=== PATIENT | female | born 1990 | race African-American/Black ===

== ENCOUNTER 2018-02-10 09:46 | Emergency (ER) | payer OTHER ==
[~2018-02-10] VITALS: Ht 157.5 cm; Wt 61.2 kg
[2018-02-10 09:57] VITALS: BP 116/73
--- NOTE | 2018-02-10 10:24 | PHYS DOC ---
Past Medical History Past Medical History: No Pertinent History Past Surgical History: Alcohol Use: Rarely Drug Use: Marijuana Adult General Chief Complaint Chief Complaint: ELBOW PROBLEM HPI HPI Patient is a 27 year old female who presents with a swollen area to her left elbow for several months. The patient denies pain or drainage from the area. She is worried that it might be an abscess. She states that nothing has made it better or worse. Review of Systems Review of Systems Constitutional: Denies fever or chills [] Eyes: Denies change in visual acuity, redness, or eye pain [] HENT: Denies nasal congestion or sore throat [] Respiratory: Denies cough or shortness of breath [] Cardiovascular: No additional information not addressed in HPI [] GI: Denies abdominal pain, nausea, vomiting, bloody stools or diarrhea [] : Denies dysuria or hematuria [] Musculoskeletal: See history of present illness Integument: Denies rash or skin lesions [] Neurologic: Denies headache, focal weakness or sensory changes [] Endocrine: Denies polyuria or polydipsia [] All other systems were reviewed and found to be within normal limits, except as documented in this note. Allergies Allergies Allergies Coded Allergies Type Severity Reaction Last Updated Verified No Known Drug Allergies 05/01/13 No Physical Exam Physical Exam Constitutional: Well developed, well nourished, no acute distress, non-toxic appearance. [] Cardiovascular:Heart rate regular rhythm, no murmur [] Lungs & Thorax: Bilateral breath sounds clear to auscultation [] Abdomen: Bowel sounds normal, soft, no tenderness, no masses, no pulsatile masses. [] Skin: There is a 1 cm in diameter, mobile cyst to the left anterior although with no erythema or drainage noted Back: No tenderness, no CVA tenderness. [] Extremities: No tenderness, no cyanosis, no clubbing, ROM intact, no edema. [] Neurologic: Alert and oriented X 3, normal motor function, normal sensory function, no focal deficits noted. [] Psychologic: Affect normal, judgement normal, mood normal. [] Current Patient Data Vital Signs Vital Signs Date Time Temp Pulse Resp B/P (MAP) Pulse Ox O2 Delivery O2 Flow Rate FiO2 02/10/18 09:57 98.2 94 16 116/73 (87) 100 Room Air 98.2 EKG EKG [] Radiology/Procedures Radiology/Procedures [] Course & Med Decision Making Course & Med Decision Making Pertinent Labs and Imaging studies reviewed. (See chart for details) []The patient is to follow-up with the primary care provider for removal of this cyst. She is in agreement with this plan. She was given a clinic list for primary care providers taking new patients. Dragon Disclaimer Dragon Disclaimer This electronic medical record was generated, in whole or in part, using a voice recognition dictation system. Departure Departure Impression: Primary Impression: Cyst Disposition: 01 HOME, SELF-CARE Condition: STABLE Referrals: NO PCP (PCP) Patient Instructions: Cyst Removal Additional Instructions: Follow-up with a primary care provider of your choice for removal of this cyst. HARRIS MADRID APRN Feb 10, 2018 10:23
== END 2018-02-10 10:26 | disposition home or self-care (01) ==
LOC: ER 09:46
DX: M71.322 Other bursal cyst, left elbow (principal)
CPT/HCPCS: 99281

== ENCOUNTER 2018-02-17 15:20 | Emergency (ER) | payer OTHER ==
[~2018-02-17] VITALS: Ht 157.5 cm; Wt 59.0 kg
[2018-02-17 15:51] VITALS: BP 96/53
[2018-02-17 16:20] LABS: BILIRUBIN,URINE NEGATIVE (NEG); CLARITY,URINE CLEAR; COLOR,URINE YELLOW; NITRITE,URINE NEGATIVE (NEG); PH,URINE 7.5; PROTEIN,URINE NEGATIVE (NEG-TRACE); UROBILINOGEN,URINE 0.2 mg/dL (0.2 mg/dL)
[2018-02-17 16:36] LABS: FECAL OB PT POSITIVE (NEG)
[2018-02-17 16:47] LABS: BACTERIA,URINE 0 /HPF (0-FEW); RBC,URINE 0 /HPF (0-2); SQUAMOUS EPITHELIAL CELL,UR MOD /LPF; WBC,URINE 0 /HPF (0-4)
[2018-02-17] MEDS ORDERED: HYDR28.311 RC (17:04)
--- NOTE | 2018-02-17 17:05 | PHYS DOC ---
Past Medical History Past Medical History: No Pertinent History Past Surgical History: Alcohol Use: Rarely Drug Use: Marijuana Adult General Chief Complaint Chief Complaint: BLOODY STOOL [facility] Patient is a 27 year old female who presents with bright red blood when passing stools that she noticed 2 days ago. The patient denies any blood noted in her underwear or do any other time other than when she is having a bowel movement. She denies rectal pain. She does not have a known history of hemorrhoids. Review of Systems Review of Systems Constitutional: Denies fever or chills [] Respiratory: Denies cough or shortness of breath [] Cardiovascular: No additional information not addressed in HPI [] GI: See history of present illness : Denies dysuria or hematuria [] Musculoskeletal: Denies back pain or joint pain [] Integument: Denies rash or skin lesions [] Neurologic: Denies headache, focal weakness or sensory changes [] Endocrine: Denies polyuria or polydipsia [] All other systems were reviewed and found to be within normal limits, except as documented in this note. Allergies Allergies Allergies Coded Allergies Type Severity Reaction Last Updated Verified No Known Drug Allergies 05/01/13 No Physical Exam Physical Exam Constitutional: Well developed, well nourished, no acute distress, non-toxic appearance. [] Cardiovascular:Heart rate regular rhythm, no murmur [] Lungs & Thorax: Bilateral breath sounds clear to auscultation [] Abdomen: Bowel sounds normal, soft, no tenderness, no masses, no pulsatile masses. [] Rectal: External hemorrhoids noted upon exam, digital rectal exam did not show any gross abnormalities, fissures or bright red blood noted, a fecal occult blood sample was sent to lab Skin: Warm, dry, no erythema, no rash. [] Back: No tenderness, no CVA tenderness. [] Extremities: No tenderness, no cyanosis, no clubbing, ROM intact, no edema. [] Neurologic: Alert and oriented X 3, normal motor function, normal sensory function, no focal deficits noted. [] Psychologic: Affect normal, judgement normal, mood normal. [] Current Patient Data Vital Signs Vital Signs Date Time Temp Pulse Resp B/P (MAP) Pulse Ox O2 Delivery O2 Flow Rate FiO2 02/17/18 15:51 98.5 84 18 96/53 (67) 99 Room Air 98.5 Lab Values Laboratory Tests Test 02/17/18 16:03 02/17/18 16:05 02/17/18 16:12 Urine Collection Type Unknown Urine Color Yellow Urine Clarity Clear Urine pH 7.5 Urine Specific [place] 1.025 Urine Protein Negative mg/dL (NEG-TRACE) Urine Glucose (UA) Negative mg/dL (NEG) Urine Ketones (Stick) Negative mg/dL (NEG) Urine Blood Negative (NEG) Urine Nitrite Negative (NEG) Urine Bilirubin Negative (NEG) Urine Urobilinogen Dipstick 0.2 mg/dL (0.2 mg/dL) Urine Leukocyte Esterase Negative (NEG) Urine RBC 0 /HPF (0-2) Urine WBC 0 /HPF (0-4) Urine Squamous Epithelial Cells Mod /LPF Urine Bacteria 0 /HPF (0-FEW) Urine Mucus Mod /LPF POC Urine HCG, Qualitative Hcg negative (Negative) Stool Occult Blood Positive (NEG) EKG EKG [] Radiology/Procedures Radiology/Procedures [] Course & Med Decision Making Course & Med Decision Making Pertinent Labs and Imaging studies reviewed. (See chart for details) []Fecal occult blood was positive. The patient will be treated with Proctosol for bleeding and probable hemorrhoids. The patient is to follow-up with GI for potential colonoscopy. She is in agreement with this plan. Dragon Disclaimer Dragon Disclaimer This electronic medical record was generated, in whole or in part, using a voice recognition dictation system. Departure Departure Impression: Primary Impression: Hemorrhoids Disposition: HOME, SELF-CARE Condition: STABLE Referrals: NO PCP (PCP) CIARRA REYNOLDS MD Patient Instructions: Hemorrhoids Additional Instructions: Use the medication as directed. Follow-up with a GI specialist for possible colonoscopy. If worsening please return to the emergency department. Scripts Hydrocortisone (PROCTOSOL-HC) 28.35 Gm Cream..g. 1 YOLI RC TID, #28.35 GM 1 Refill Prov: HARRIS MADRID APRN 02/17/18 HARRIS MADRID APRN Feb 17, 2018 17:05
== END 2018-02-17 17:24 | disposition home or self-care (01) ==
LOC: ER 15:20
DX: K64.4 Residual hemorrhoidal skin tags (principal)
CPT/HCPCS: 81001; 81025; 82274; 99284

== ENCOUNTER 2018-05-31 06:41 | Emergency (ER) | payer OTHER ==
[~2018-05-31] VITALS: Ht 157.5 cm; Wt 59.0 kg
[~2018-05-31 06:41] MED LIST: HYDR28.311 RC
[2018-05-31 07:00] VITALS: BP 98/57
[2018-05-31] MEDS ORDERED: SENN-121 PO (07:38)
[2018-05-31] MEDS ORDERED: HYDR25SU18 RC (07:38)
--- NOTE | 2018-05-31 07:38 | PHYS DOC ---
Past Medical History Past Medical History: No Pertinent History Past Surgical History: Smoking: Cigarettes Alcohol Use: Rarely Drug Use: Marijuana Adult General Chief Complaint Chief Complaint: RECTAL BLEED HPI HPI 27-year-old female presents with report of rectal bleeding after having a hard bowel movement this morning. Reports has had similar type bleeding a few months ago which was thought to be secondary to hemorrhoids. Patient reports she was prescribed some cream with some scant improvement of symptoms. Denies fever or chills. Denies nausea or vomiting. Denies . Denies use of blood thinners. Denies dizziness or lightheadedness. Review of Systems Review of Systems Constitutional: Denies fever or chills [] Respiratory: Denies cough or shortness of breath [] Cardiovascular: Denies chest pain or palpitations GI: Denies abdominal pain, nausea, vomiting; reports rectal bleeding and constipation : Denies dysuria or hematuria [] Musculoskeletal: Denies back pain or joint pain [] Integument: Denies rash or skin lesions [] Neurologic: Denies headache, focal weakness, sensory changes, dizziness, or lightheadedness Complete systems were reviewed and found to be within normal limits, except as documented in this note. Allergies Allergies Allergies Coded Allergies Type Severity Reaction Last Updated Verified No Known Drug Allergies 05/01/13 No Physical Exam Physical Exam Constitutional: Well developed, well nourished, no acute distress, non-toxic appearance. [] HENT: Normocephalic, atraumatic, oropharynx moist Eyes: Conjunctiva normal, no discharge. [] Neck: Normal range of motion, no tenderness, supple, no stridor. [] Cardiovascular Heart rate regular rhythm, no murmur [] Lungs & Thorax: Bilateral breath sounds clear to auscultation [] Abdomen: Soft, no tenderness Rectal exam: Keri James RN, nonbleeding external hemorrhoids noted, internal hemorrhoid noted at 3o'clock position, scant gross blood noted with brown stool smear Skin: Warm, dry, no erythema, no rash. [] Extremities: No tenderness, ROM intact, no edema. [] Neurologic: Alert and oriented X 3, normal motor function, normal sensory function, no focal deficits noted. [] Psychologic: Affect normal, judgement normal, mood normal. [] Current Patient Data Vital Signs Vital Signs Date Time Temp Pulse Resp B/P (MAP) Pulse Ox O2 Delivery O2 Flow Rate FiO2 05/31/18 07:00 98.4 85 16 98/57 (71) 99 Room Air 98.4 Lab Values Laboratory Tests Test 05/31/18 07:27 Stool Occult Blood Positive (NEG) EKG EKG [] Radiology/Procedures Radiology/Procedures [] Course & Med Decision Making Course & Med Decision Making Patient presents with history of present illness physical exam concerning for bleeding hemorrhoids due to constipation. Patient denies any dizziness or lightheadedness. Denies rectal pain. Physical exam noted nonbleeding external hemorrhoids with a internal hemorrhoid which did note some scant gross blood. Occult stool positive. Orthostatic vital signs stable. Patient stable for discharge with outpatient follow-up with PCP/GI. GI referral provided. Prescription for Anusol suppositories and stool softeners provided. Discussed findings and plan with patient, who acknowledges understanding and agreement. Dragon Disclaimer Dragon Disclaimer This electronic medical record was generated, in whole or in part, using a voice recognition dictation system. Departure Departure Impression: Primary Impression: Rectal bleeding Additional Impression: Internal hemorrhoid Disposition: 01 HOME, SELF-CARE Condition: STABLE Referrals: NO PCP (PCP) CIARRA REYNOLDS MD Patient Instructions: Hemorrhoids, [id number], Rectal Bleeding, [id number] Scripts Sennosides/Docusate Sodium (Colace 2-in-1 Tablet) 1 Each Tablet 1-2 EACH PO QHS PRN for CONSTIPATION, #30 TAB Prov: JACOB REYES DO 05/31/18 Hydrocortisone Acetate (ANUSOL-HC) 25 Mg Supp.rect 1 SUPP RC BID, #14 SUPP Prov: JACOB REYES DO 05/31/18 Problem Qualifiers JACOB REYES DO May 31, 2018 07:38
[2018-05-31 07:51] LABS: FECAL OB PT POSITIVE (NEG)
== END 2018-05-31 07:45 | disposition home or self-care (01) ==
LOC: ER 06:41
DX: K62.5 Hemorrhage of anus and rectum (principal); K64.8 Other hemorrhoids; F17.210 Nicotine dependence, cigarettes, uncomplicated; Z98.890 Other specified postprocedural states
CPT/HCPCS: 82274; 99283